=== PATIENT | female | born 1930 | race Caucasian/White ===

== ENCOUNTER 2017-04-14 12:03 | Observation (INO) | payer MEDICARE ==
[2017-04-14] MEDS ORDERED: Sodium Chloride 0.9% 1,000 ML IV STA ×2 (12:33→14:29)
[2017-04-14 12:51] LABS: BASO % 0.4 % (0.0-2.0); EOS # 0.1 K/uL (0.0-0.7); HEMATOCRIT 38.2 % (34.0-47.0); LYMPH # 0.9 K/uL (1.0-4.3); LYMPH % 25.1 % (20.0-40.0); MEAN CELL VOLUME 81.6 fl (81.0-99.0); MEAN CORPUSCULAR HEMOGLOBIN 26.2 pg (27.0-31.0); MEAN CORPUSCULAR HGB CONC 32.1 g/dL (33.0-37.0); MEAN PLATELET VOLUME 9.7 fl (7.2-11.7); MONO # 0.3 K/uL (0.0-0.8); MONO % 8.3 % (0.0-10.0); NEUT # 2.4 K/uL (1.8-7.0); NEUT % 63.2 % (50.0-75.0); NRBC % 0.1 % (0.0-0.0); RED CELL DISTRIBUTION WIDTH 13.8 % (11.5-14.5); WHITE BLOOD COUNT 3.8 K/uL (4.8-10.8)
[2017-04-14 13:00] LABS: VENOUS BLOOD GAS BASE EXCESS 5.8 mmol/L (0.0-2.0); VENOUS BLOOD GAS PCO2 47 mmHg (40-60); VENOUS BLOOD PH 7.43 (7.32-7.43)
[2017-04-14 13:02] LABS: ALB/GLOB RATIO 1.4 (1.0-2.1); ALKALINE PHOSPHATASE 105 U/L (38-126); ALT/SGPT 33 U/L (9-52); AST/SGOT 22 U/L (14-36); BILIRUBIN,TOTAL 0.8 mg/dl (0.2-1.3); BLOOD UREA NITROGEN 24 mg/dl (7-17); CALCIUM 9.5 mg/dL (8.4-10.2); CARBON DIOXIDE 28 mmol/L (22-30); CHLORIDE 99 mmol/L (98-107); GFR AFRICAN-AMERICAN > 60; POTASSIUM 4.6 MMOL/L (3.6-5.0); SODIUM 136 mmol/l (132-148); TOTAL PROTEIN 6.7 G/DL (6.3-8.2)
[2017-04-14 13:04] LABS: PARTIAL THROMBOPLASTIN TIME 26.2 Seconds (25.6-37.1)
[2017-04-14 13:18] LABS: GLUCOSE,RANDOM 430 mg/dL (65-105)
--- NOTE | 2017-04-14 13:22 | CT ---
PROCEDURE: CT HEAD WITHOUT CONTRAST. HISTORY: Lightheadedness COMPARISON: None available. TECHNIQUE: Axial computed tomography images were obtained through the head/brain without intravenous contrast. Radiation dose: Total exam DLP = 801 mGy-cm. This CT exam was performed using one or more of the following dose reduction techniques: Automated exposure control, adjustment of the mA and/or kV according to patient size, and/or use of iterative reconstruction technique. FINDINGS: HEMORRHAGE: No intracranial hemorrhage. BRAIN: No mass effect or edema. Limited expansion of the ventriculosulcal and cisternal spaces appreciated compatible diffuse cerebral atrophy. No additional pertinent findings identified above or below the tentorium throughout the parenchyma. VENTRICLES: Unremarkable. No hydrocephalus. CALVARIUM: Unremarkable. PARANASAL SINUSES: Unremarkable as visualized. No significant inflammatory changes. MASTOID AIR CELLS: Unremarkable as visualized. No inflammatory changes. OTHER FINDINGS: None. IMPRESSION: Mild diffuse cerebral atrophy is encountered. There is no intra hemorrhage, mass effect or parenchymal edema identified. No fracture of the calvarium and skull base is encountered.
--- NOTE | 2017-04-14 13:36 | CT ---
PROCEDURE: CT Thoracic Spine without contrast HISTORY: Chronic pain COMPARISON: None. TECHNIQUE: Axial computed tomography images were obtained of the thoracic spine without intravenous contrast. Coronal and sagittal reformatted images were created and reviewed. Radiation dose: Total exam DLP = 932 mGy-cm. This CT exam was performed using one or more of the following dose reduction techniques: Automated exposure control, adjustment of the mA and/or kV according to patient size, and/or use of iterative reconstruction technique. FINDINGS: VERTEBRAE: Unremarkable. No fracture. Normal alignment. DISCS/SPINAL CANAL/NEURAL FORAMINA: Diffuse multilevel thoracic spondylosis identified which apparently anterior more than posterior throughout the vast majority of of the thoracic spine though bridging osteophytes are also mild to moderately identified at T3-4 and T4-5 posteriorly. No significant bony central canal or neural foraminal stenosis identified. No prominent disc herniation. PARASPINAL SOFT TISSUES: Unremarkable. OTHER FINDINGS: Incidental multifocal ground-glass opacities appreciate the bilateral visualized lungs. IMPRESSION: 1. No fracture or spondylolisthesis identified. No suspicious lytic or blastic change. 2. Advanced multilevel thoracic spondylosis is appreciate including numerous bridging osteophytes which are predominantly anteriorly located with minimal upper thoracic posterior spondylosis. No significant bony central canal or neural foraminal stenosis. No gross disc herniation. Follow-up MRI can be utilized for further characterization if clinically warranted. 3. Incidental multifocal ground-glass pulmonary opacity.
[2017-04-14 13:37] VITALS: O2SAT 97
[2017-04-14 14:14] LABS: RBC URINE 1 /hpf (0-3); URINE BACTERIA RARE (<OCC); URINE BILIRUBIN NEGATIVE (NEGATIVE); URINE BLOOD NEGATIVE (NEGATIVE); URINE COLOR COLORLESS (YELLOW); URINE GLUCOSE (UA) >=500 mg/dL (Normal); URINE KETONE NEGATIVE (NEGATIVE); URINE LEUKOCYTE ESTERASE NEG Leu/uL (Negative); URINE PROTEIN NEGATIVE (NEGATIVE); URINE UROBILINOGEN 0.2-1.0 mg/dL (0.2-1.0); WBC URINE < 1 /hpf (0-5)
--- NOTE | 2017-04-14 14:25 | CT ---
PROCEDURE: CT Lumbar Spine without contrast HISTORY: Chronic pain COMPARISON: Lumbar spine CT 10/06/2013 TECHNIQUE: Axial computed tomography images were obtained of the lumbar spine without the use of intravenous contrast. Coronal and sagittal reformatted images were created and reviewed. Radiation dose: Total exam DLP = 940 mGy-cm. This CT exam was performed using one or more of the following dose reduction techniques: Automated exposure control, adjustment of the mA and/or kV according to patient size, and/or use of iterative reconstruction technique. FINDINGS: VERTEBRAE: Stable normal lumbar curvature is appreciated. Mild asymmetric anterior wedge compression fracture is appreciate the L2 vertebral body greater the left and right in the interval, of indeterminate age. A small Schmorl's node is associated the upper endplate centrally. Dear body heights are otherwise well maintained throughout the remainder of the lumbar spine. Advanced endplate degenerate changes seen at L4-5 and remain at L5-S1 extensive multilevel lumbar spondylosis identified with a stable mild levoscoliotic lumbar spinal deformity noted. DISCS/SPINAL CANAL/NEURAL FORAMINA: L1-2: Limited posterior osteophytic ridging is identified without significant stenosis resulting. L2-3: Stable mild central canal stenosis again appreciate on the basis of circumferential disc osteophyte complex combining with moderate facet arthropathy. Stable mild bilateral neural foraminal stenosis is identified. L3-4: An additional disc osteophyte complex is appreciated combining with facet joint arthropathy to cause mild bilateral lateral recess stenosis, moderate right and mild left neural foraminal stenosis. No significant interval change identified. L4-5: A large circumferential disc disc osteophyte complex is again again identified slightly increased in size with further vacuum disc changes present and disc height loss. Moderate central canal stenosis is identified with increased right neural foraminal stenosis now appearing severe on a degenerative basis. Throughout drop the remains asymmetric greater the right than left sides with mild left neural foraminal stenosis stable. L5-S1: A degenerative central canal stenosis is stable caused by gross common bilateral facet joint degenerative arthropathy combining with a disc osteophyte complex. Stable moderate to severe right and severe left neural foraminal stenosis is identified. No definite interval definitive disc herniation appreciable however MRI is more sensitive PARASPINAL SOFT TISSUES: Unremarkable. OTHER FINDINGS: None. IMPRESSION: Advanced multilevel degenerative disc disease and facet arthropathy are complicated by mild scoliosis with interval worsening of neural foraminal stenoses identified bilaterally L4-5 and L5-S1 but stable moderate central stenosis at the same levels. Lesser degenerative findings are seen in the upper and mid lumbar spine as per above. No prominent interval disc herniation identified. Follow-up MRI may be utilized for additional detail if clinically warranted.
[2017-04-14] MEDS ORDERED: Insulin Regular 100 units/ml IV STA ×2 (14:29→17:18)
[2017-04-14] MEDS ORDERED: Insulin Regular 100 units/ml ONE ×2 (14:32→17:23)
--- NOTE | 2017-04-14 15:02 | ED PDOC ---
HPI: General Adult Time Seen by Provider: 04/14/17 12:14 Chief Complaint (Nursing): Dizziness/Lightheaded Chief Complaint (Provider): Dizziness, lower back pain History Per: Patient History/Exam Limitations: no limitations Onset/Duration Of Symptoms: Persistent Additional History Per: Patient Additional Complaint(s): The patient is a 86yo female, presents to the ED for evaluation of dizziness which is present miriam she goes from a bending position to standing up. Patient also reports a low back pain, present for the past 5 years; she denies any trauma or injury as the cause of this pain and is unsure of the medication that she is currently taking to manage this. She denies taking any medications for pain today. Patient denies numbness or tingling, weakness and offers no additional medical complaints. Past Medical History Reviewed: Historical Data, Nursing Documentation, Vital Signs Vital Signs: Last Vital Signs Temp 97.0 F L 04/14/17 12:16 Pulse 78 04/14/17 13:37 Resp 16 04/14/17 13:37 BP 140/78 04/14/17 13:37 Pulse Ox 97 04/14/17 18:35 - Medical History PMH: Arthritis, Asthma, Back Problems, Diabetes, HTN, Osteoporosis - Surgical History Surgical History: Appendectomy, Cholecystectomy - Family History Family History: States: Unknown Family Hx - Immunization History Hx Tetanus Toxoid Vaccination: No Hx Influenza Vaccination: Yes Hx Pneumococcal Vaccination: No - Home Medications Home Medications: Ambulatory Orders Medication Instructions Recorded Cardizem CD 180 mg PO BID 03/26/17 Insulin Lispro [Humalog Kwikpen 4 - 5 unit SQ AC #1 insuln.pen 03/26/17 U-100] Metformin HCl 500 mg PO BID 03/26/17 Metoprolol 50 mg 03/26/17 Naproxen 375 mg PO BID 03/26/17 raNITIdine 150 mg PO BID 03/26/17 Albuterol HFA [Ventolin HFA 90 2 puff IH [id number] PRN #1 bottle 04/14/17 mcg/actuation (8 g)] - Allergies Allergies/Adverse Reactions: Allergies Allergy/AdvReac Type Severity Reaction Status Date / Time No Known Allergies Allergy Verified 10/14/16 14:55 Review of Systems ROS Statement: Except As Marked, All Systems Reviewed And Found Negative Musculoskeletal: Positive for: Back Pain Neurological: Positive for: Dizziness. Negative for: Weakness, Numbness Physical Exam - Reviewed Nursing Documentation Reviewed: Yes Vital Signs Reviewed: Yes - Physical Exam Appears: Positive for: Well, Non-toxic, No Acute Distress Head Exam: Positive for: ATRAUMATIC, NORMAL INSPECTION, NORMOCEPHALIC Skin: Positive for: Normal Color, Warm, DRY Eye Exam: Positive for: EOMI, Normal appearance, PERRL Neck: Positive for: Normal, Supple Cardiovascular/Chest: Positive for: Regular Rate, Rhythm Respiratory: Positive for: Normal Breath Sounds. Negative for: Respiratory Distress Back: Positive for: Normal Inspection, Other (mild mid-lower back tenderness) Extremity: Positive for: Normal ROM. Negative for: Deformity, Swelling Neurologic/Psych: Positive for: Alert, Oriented. Negative for: Motor/Sensory Deficits - Laboratory Results Result Diagrams: 04/14/17 12:34 04/14/17 12:34 - ECG O2 Sat by Pulse Oximetry: 97 (RA) Pulse Ox Interpretation: Normal Medical Decision Making Medical Decision Making: Time: 1235 Impression: Lower back pain Plan: -- EKG -- IV NS 1L/Hr -- Morphine 2mg IV -- CT Head -- CT Lumbar Spine -- CT Thoracic Spine -- Chest x-ray Reassess Time: 1300 -- VBG Ordered Time: 1320 CT Head IMPRESSION: Mild diffuse cerebral atrophy is encountered. There is no intra hemorrhage, mass effect or parenchymal edema identified. No fracture of the calvarium and skull base is encountered. Time: 1334 CT Thoracic Spine IMPRESSION: 1. No fracture or spondylolisthesis identified. No suspicious lytic or blastic change. 2. Advanced multilevel thoracic spondylosis is appreciate including numerous bridging osteophytes which are predominantly anteriorly located with minimal upper thoracic posterior spondylosis. No significant bony central canal or neural foraminal stenosis. No gross disc herniation. Follow-up MRI can be utilized for further characterization if clinically warranted. 3. Incidental multifocal ground-glass pulmonary opacity. Time: 1400 Patient placed in ED observation pending CT lumbar spine read and ED workup. All further progress notes recorded in ED observation section. Scribe Attestation: Documented by Idania Lopez acting as a scribe for Beatris Jordan MD. Provider Attestation: All medical record entries made by the Scribe were at my direction and personally dictated by me. I have reviewed the chart and agree that the record accurately reflects my personal performance of the history, physical exam, medical decision making, and the department course for this patient. I have also personally directed, reviewed, and agree with the discharge instructions and disposition. ED OBSERVATION Date of observation admission: 04/14/17 Time of observation admission: 14:00 - Progress Note Progress Note: 04/14/17 14:24 CT Lumbar Spine IMPRESSION: Advanced multilevel degenerative disc disease and facet arthropathy are complicated by mild scoliosis with interval worsening of neural foraminal stenoses identified bilaterally L4-5 and L5-S1 but stable moderate central stenosis at the same levels. Lesser degenerative findings are seen in the upper and mid lumbar spine as per above. No prominent interval disc herniation identified. Follow-up MRI may be utilized for additional detail if clinically warranted. 04/14/17 14:30 -- Insulin Human Regular 10 units IV -- IV NS 1L/hr Pt and grandson notified of incidental finding seen on CT, given copy of CT report to take to PMD. 04/14/17 16:25 -- IV NS 500ml/hr 04/14/17 17:58 Chest x-ray IMPRESSION: No acute infiltrate or pleural effusion identified. 04/14/17 18:00 Upon discharge, pt states she feels short of breath at times, grandson states apartment can get hot. Will Rx Albuterol MDI. Disposition - Clinical Impression Clinical Impression: Hyperglycemia, Chronic back pain, Ground glass opacity present on imaging of lung - Disposition Disposition: Routine/Home Disposition Time: 16:52 Condition: STABLE
[2017-04-14] MEDS ORDERED: Sodium Chloride 0.9% 500 ML IV STA (16:25)
--- NOTE | 2017-04-14 17:53 | RAD ---
HISTORY: Dizziness COMPARISON: No prior. FINDINGS: LUNGS: No active pulmonary disease. PLEURA: No significant pleural effusion identified, no pneumothorax apparent. CARDIOVASCULAR: Normal. OSSEOUS STRUCTURES: No significant abnormalities. VISUALIZED UPPER ABDOMEN: Normal. OTHER FINDINGS: None. IMPRESSION: No acute infiltrate or pleural effusion identified.
[2017-04-14 19:16] VITALS: BP 132/74; PULSE 88; RESP 19; TEMP 98.6
--- NOTE | 2017-04-15 11:29 | CARD ---
APPROVED REPORT EKG Measurement Heart [id number] <Conclusion> Sinus rhythm with 1st degree AV block Otherwise normal ECG
== END 2017-04-14 19:00 | disposition home or self-care (01) ==
LOC: H.ER 12:03 → H.EROBSV 14:00
PROVIDERS: ADMIT Emergency Medicine; ATTEND Emergency Medicine
DX: E11.65 Type 2 diabetes mellitus with hyperglycemia (principal); G89.29 Other chronic pain; M54.5 Low back pain; M81.0 Age-related osteoporosis without current pathological fracture; J45.909 Unspecified asthma, uncomplicated; J98.4 Other disorders of lung
CPT/HCPCS: 70450; 71010; 72128; 72131; 80053; 81003; 82803; 82948; 84484; 85025; 85610; 85730; 93005; 99285; G0378; J2270; J7040

== ENCOUNTER 2018-03-22 21:39 | Emergency (ER) | payer MEDICARE ==
[2018-03-22 21:58] VITALS: TEMP 98.1
[2018-03-22] MEDS ORDERED: Carbamide Peroxide OTIC SOLUTION AU STA (22:32)
--- NOTE | 2018-03-22 22:43 | ED PDOC ---
HPI: Back Time Seen by Provider: 03/22/18 22:11 Chief Complaint (Nursing): Back Pain Chief Complaint (Provider): Back pain and neck pain History Per: Patient History/Exam Limitations: no limitations Onset/Duration Of Symptoms: Days (x1) Additional Complaint(s): Kika Daigle is a [age]y/o female with history of chronic lower back pain and diabetes who presents to the ED complaining of right lateral neck pain, decreased hearing, and lower back pain. Patient reports that the neck pain started last night and she denies taking any medication for the pain. Patient states she has had the decreased hearing before and it was due to buildup of ear wax. Patient reports on and off urinary frequency problems but denies any incontinence or dysuria. She denies any headache, dizziness, abdominal pain, nausea, vomiting, injury or trauma. No numbness, tingles, weakness, constipation. PMD: Dr. Koch Past Medical History Reviewed: Historical Data, Nursing Documentation, Vital Signs Vital Signs: Last Vital Signs Temp 98.1 F 03/22/18 21:54 Pulse 90 03/22/18 21:54 Resp 18 03/22/18 21:54 BP 154/68 H 03/22/18 21:54 Pulse Ox 100 03/22/18 21:54 - Medical History PMH: Back Problems, Diabetes, HTN, Osteoporosis - Surgical History Surgical History: Appendectomy, Cholecystectomy - Family History Family History: States: Unknown Family Hx - Immunization History Hx Tetanus Toxoid Vaccination: No Hx Influenza Vaccination: Yes Hx Pneumococcal Vaccination: No - Home Medications Home Medications: Ambulatory Orders Medication Instructions Recorded Cardizem CD 180 mg PO BID 03/26/17 Insulin Lispro [Humalog Kwikpen 4 - 5 unit SQ AC #1 insuln.pen 03/26/17 U-100] Metformin HCl 500 mg PO BID 03/26/17 Metoprolol 50 mg 03/26/17 Naproxen 375 mg PO BID 03/26/17 raNITIdine 150 mg PO BID 03/26/17 Albuterol HFA [Ventolin HFA 90 2 puff IH [id number] PRN #1 bottle 04/14/17 mcg/actuation (8 g)] - Allergies Allergies/Adverse Reactions: Allergies Allergy/AdvReac Type Severity Reaction Status Date / Time No Known Allergies Allergy Verified 10/14/16 14:55 Review of Systems ROS Statement: Except As Marked, All Systems Reviewed And Found Negative Constitutional: Negative for: Fever Gastrointestinal: Negative for: Nausea, Vomiting, Abdominal Pain Genitourinary Female: Positive for: Frequency Musculoskeletal: Positive for: Neck Pain, Back Pain Neurological: Negative for: Headache, Dizziness Physical Exam - Reviewed Nursing Documentation Reviewed: Yes Vital Signs Reviewed: Yes - Physical Exam Appears: Positive for: Non-toxic, No Acute Distress Head Exam: Positive for: ATRAUMATIC, NORMOCEPHALIC Skin: Positive for: Normal Color, Warm, Dry Eye Exam: Positive for: EOMI, Normal appearance, PERRL ENT: Positive for: Normal ENT Inspection (bilateral buildup of ear wax) Neck: Positive for: Painless ROM, Supple. Negative for: Normal (mild tenderness right lateral neck) Cardiovascular/Chest: Positive for: Regular Rate, Rhythm. Negative for: Murmur Respiratory: Positive for: Normal Breath Sounds. Negative for: Respiratory Distress Gastrointestinal/Abdominal: Positive for: Normal Exam, Soft. Negative for: Tenderness Back: Positive for: Normal Inspection, Other (mild tenderness left lower back). Negative for: L CVA Tenderness, R CVA Tenderness, Vertebral Tenderness ( cervical spine tenderness) Extremity: Positive for: Normal ROM, Other (Straight leg raise test -negative). Negative for: Pedal Edema, Deformity Neurologic/Psych: Positive for: Alert, Oriented. Negative for: Motor/Sensory Deficits - ECG O2 Sat by Pulse Oximetry: 100 (RA) Pulse Ox Interpretation: Normal - Progress ED Course And Treament: 2350: Stable. Alert. Dr. Pinto to fu on labs and urine. Medical Decision Making Medical Decision Making: Time: 22:31 Initial Impression: Neck pain, decreased hearing, chronic back pain Initial Plan: --Urine dip --RAD - cervical spine --Debrox --Toradol 15 mg IM --Glucose POCUrine dip --RAD - cervical spine --Debrox --Toradol 15 mg IM --Glucose POC ----- Scribe Attestation: Documented by Harvinder Bagley, acting as a scribe for Alejandro Houser MD. Provider Scribe Attestation: All medical record entries made by the Scribe were at my direction and personally dictated by me. I have reviewed the chart and agree that the record accurately reflects my personal performance of the history, physical exam, medical decision making, and the department course for this patient. I have also personally directed, reviewed, and agree with the discharge instructions and disposition. Disposition - Clinical Impression Clinical Impression: Chronic pain - Patient ED Disposition Is Patient to be Admitted: No - Disposition Disposition: Transfer of Care Disposition Time: 23:50 Condition: STABLE Patient Signed Over To: Isaac Pinto
[2018-03-22] MEDS ORDERED: Sodium Chloride 0.9% 1,000 ML IV STA (23:08)
[2018-03-22 23:57] LABS: BASO % 0.2 % (0.0-2.0); EOS # 0.1 K/uL (0.0-0.7); EOS % 1.9 % (0.0-4.0); HEMOGLOBIN 13.2 g/dL (12.0-16.0); LYMPH # 1.5 K/uL (1.0-4.3); LYMPH % 25.8 % (20.0-40.0); MEAN CELL VOLUME 80.8 fl (81.0-99.0); MEAN CORPUSCULAR HEMOGLOBIN 26.5 pg (27.0-31.0); MEAN CORPUSCULAR HGB CONC 32.8 g/dL (33.0-37.0); MONO # 0.5 K/uL (0.0-0.8); MONO % 8.3 % (0.0-10.0); NEUT # 3.8 K/uL (1.8-7.0); NEUT % 63.8 % (50.0-75.0); RBC 4.97 Mil/uL (3.80-5.20); RED CELL DISTRIBUTION WIDTH 13.8 % (11.5-14.5); WHITE BLOOD COUNT 5.9 K/uL (4.8-10.8)
[2018-03-23 00:04] LABS: ALB/GLOB RATIO 1.3 (1.0-2.1); ALBUMIN 4.2 g/dL (3.5-5.0); ALT/SGPT 21 U/L (9-52); AST/SGOT 23 U/L (14-36); BLOOD UREA NITROGEN 27 mg/dl (7-17); CALCIUM 9.8 mg/dL (8.4-10.2); GFR NON-AFRICAN AMERICAN > 60
--- NOTE | 2018-03-23 01:11 | ED PDOC ---
- Laboratory Results Result Diagrams: 03/22/18 23:25 03/22/18 23:25 - ECG O2 Sat by Pulse Oximetry: 100 (RA) Medical Decision Making Medical Decision Makin:00 Patient care endorsed from Dr. Houser to Dr. Pinto pending urinalysis results. 0200 FS 275, patient states this is normal for her, states she's feeling well and wants to go home. Patient ambulatory, well appearing upon discharge. Scribe Attestation: Documented by Unique Leyva, acting as a scribe for Isaac Pinto MD. Provider Scribe Attestation: All medical record entries made by the Scribe were at my direction and personally dictated by me. I have reviewed the chart and agree that the record accurately reflects my personal performance of the history, physical exam, medical decision making, and the department course for this patient. I have also personally directed, reviewed, and agree with the discharge instructions and disposition. Disposition - Clinical Impression Clinical Impression: Chronic pain, Hyperglycemia - POA Present On Arrival: None - Disposition Disposition: Routine/Home Disposition Time: 02:00 Condition: STABLE Instructions: Hyperglycemia, Adult, Chronic Pain Forms: [employer] (Portuguese) Print Language: BELGIAN
[2018-03-23] MEDS ORDERED: Insulin Regular 100 units/ml IV STA (02:13)
[2018-03-23 02:56] VITALS: BP 143/65; PULSE 78; RESP 16
[2018-03-23 04:11] VITALS: O2SAT 100
--- NOTE | 2018-03-23 08:31 | RAD ---
Date of service: 03/22/2018 PROCEDURE: Cervical Spine Radiographs. HISTORY: Pain. COMPARISON: None. FINDINGS: BONES: Normal cervical curvature is interrupted by a minimal retrolistheses at C4-5, C5-6 and potentially C6-7. These findings appear to be degenerative uncovered by extensive spondylosis with C4 slightly posterior to C5 and C5 slightly posterior C6 and C6 borderline posterior C7 versus prominent posterior osteophytes. There is extensive multilevel cervical facet joint arthropathy which appears to be the etiology. No displaced fracture. Dens Intact. DISC SPACES: Advanced multilevel degenerative disc disease seen throughout the mid inferior cervical spine. SOFT TISSUES: Normal. No prevertebral soft tissue swelling. OTHER FINDINGS: None. IMPRESSION: No definitive displaced fracture, however, multilevel retrolistheses are identified at C4-5 and C5-6, possibly at C6-[address] may be utilized for greater characterization as clinically warranted. Advanced multilevel spondylosis and facet joint degenerative arthropathy.
--- NOTE | 2018-03-23 17:44 | CARD ---
APPROVED REPORT Date of service: 03/22/2018 EKG Measurement Heart [id number] <Conclusion> Sinus rhythm with 1st degree AV block Otherwise normal ECG
== END 2018-03-23 03:04 | disposition home or self-care (01) ==
LOC: H.ER 21:39
DX: M54.9 Dorsalgia, unspecified (principal); E11.65 Type 2 diabetes mellitus with hyperglycemia; Z79.4 Long term (current) use of insulin; G89.29 Other chronic pain; I10 Essential (primary) hypertension
CPT/HCPCS: 72052; 80053; 82948; 85025; 93005; 96361; 96374; 99283; J1885; J7030